=== PATIENT | female | born 1975 | race Caucasian/White ===

== ENCOUNTER 2020-12-29 11:10 | Observation (INO) ==
[2020-12-29] MEDS ORDERED: Ondansetron ODT 4 MG TAB.RAPDIS SL ONE (12:25)
[2020-12-29 13:13] LABS: Basophils % 0.6 %; Eosinophils # 0.1 K/mcL (0.0-0.6); Hematocrit 38.6 % (35.3-44.9); Hemoglobin 12.2 g/dL (11.5-15.4); Immature Granulocytes % 0.7 % (0-4); Lymphocytes % 27.5 %; Mean Corpuscular HGB Conc 31.6 g/dL (31.6-35.5); Mean Corpuscular Volume 91.9 fL (83.0-100.0); Mean Platelet Volume 8.8 fL (9.4-12.4); Monocytes # 0.5 K/mcL (0.0-1.3); Monocytes % 6.9 %; Neutrophils # 4.4 K/mcL (1.6-8.9); Platelet Count 215 K/mcL (140-400); Red Cell Distribution Width 12.9 % (11.5-14.5); Segmented Neutrophils % 62.3 %; White Blood Count 7.1 K/mcL (4.3-11.1)
[2020-12-29] MEDS ORDERED: Ketorolac 15 MG/ML VIAL IVP ONE (13:26)
[2020-12-29] MEDS ORDERED: Prochlorperazine 10 MG/2 ML VIAL IVP ONE (13:29)
[2020-12-29 13:35] LABS: Alanine Aminotransferase 21 Units/L (7-52); Albumin 3.9 g/dL (3.5-5.7); Albumin/Globulin Ratio 1.2 (1.1-2.2); Alkaline Phosphatase 67 Units/L (34-104); Aspartate Amino Transferase 21 Units/L (13-39); BUN/Creatinine Ratio 18 (6-26); Bilirubin,Total 0.3 mg/dL (0.3-1.0); Blood Urea Nitrogen 18 mg/dL (6-20); Calcium 8.9 mg/dL (8.6-10.3); Carbon Dioxide 28 mEq/L (23-29); Chloride 102 mEq/L (98-107); Globulin 3.3 g/dL (2.4-3.5); Glucose 81 mg/dL (70-105); Osmolality,Calculated 285 (280-300); Potassium 4.8 mEq/L (3.5-5.1); Sodium 137 mEq/L (136-145); Total Protein 7.2 g/dL (6.4-8.9); Troponin I < 0.03 ng/mL (< 0.04); eGFR For African Americans > 60 (> 60); eGFR For Non-African Americans 60 (> 60)
[2020-12-29] MEDS ORDERED: *HR* HYDROcodone/Acet 5/325 mg TABLET PO PRN (15:43)
[2020-12-29] MEDS ORDERED: Naloxone 0.4 MG/ML INJ IVP PRN (15:43)
[2020-12-29] MEDS ORDERED: Ondansetron 4 MG/2 ML VIAL IVP PRN (15:43)
[2020-12-29 16:44] LABS: Chol/HDL Ratio 2.8 (0-4.9); Cholesterol 131 mg/dL (< 200); HDL Cholesterol 47 mg/dL (40-59); LDL Cholesterol,Calculated 68 mg/dL (< 100); Magnesium 1.9 mg/dL (1.6-2.6); Phosphorous 3.8 mg/dL (2.7-4.5); Triglycerides 81 mg/dL (< 150)
[2020-12-29 16:51] LABS: Prothrombin Time 11.5 Seconds (9.4-12.1)
[2020-12-29 16:57] LABS: Thyroid Stimulating Hormone 1.548 mcIU/mL (0.340-5.600)
[2020-12-29] MEDS ORDERED: Perflutren Lipid Microsphere 1.3 ML in 0.9 % Sodium Chloride 8.7 ML IVP PRN (18:03)
[2020-12-29] MEDS ORDERED: Nitroglycerin 0.4 MG TAB.SUBL SL PRN (22:25)
[2020-12-29] MEDS ORDERED: Melatonin 3 MG TABLET PO PRN (22:25)
[2020-12-30 01:25] LABS: Basophils % 0.6 %; Eosinophils # 0.2 K/mcL (0.0-0.6); Eosinophils % 3.2 %; Hematocrit 36.9 % (35.3-44.9); Hemoglobin 11.6 g/dL (11.5-15.4); Immature Granulocytes % 0.4 % (0-4); Lymphocytes # 2.9 K/mcL (0.6-4.6); Mean Corpuscular HGB Conc 31.4 g/dL (31.6-35.5); Mean Corpuscular Volume 92.3 fL (83.0-100.0); Mean Platelet Volume 9.1 fL (9.4-12.4); Monocytes # 0.6 K/mcL (0.0-1.3); Neutrophils # 3.4 K/mcL (1.6-8.9); Platelet Count 217 K/mcL (140-400); Segmented Neutrophils % 46.8 %; White Blood Count 7.2 K/mcL (4.3-11.1)
[2020-12-30 01:44] LABS: Alanine Aminotransferase 20 Units/L (7-52); Albumin 3.5 g/dL (3.5-5.7); Albumin/Globulin Ratio 1.1 (1.1-2.2); Alkaline Phosphatase 59 Units/L (34-104); Aspartate Amino Transferase 18 Units/L (13-39); BUN/Creatinine Ratio 19 (6-26); Bilirubin,Total 0.3 mg/dL (0.3-1.0); Blood Urea Nitrogen 22 mg/dL (6-20); Calcium 8.8 mg/dL (8.6-10.3); Carbon Dioxide 27 mEq/L (23-29); Chloride 101 mEq/L (98-107); Globulin 3.3 g/dL (2.4-3.5); Glucose 133 mg/dL (70-105); Magnesium 2.2 mg/dL (1.6-2.6); Osmolality,Calculated 287 (280-300); Phosphorous 5.8 mg/dL (2.7-4.5); Sodium 136 mEq/L (136-145); Total Protein 6.8 g/dL (6.4-8.9); eGFR For African Americans > 60 (> 60); eGFR For Non-African Americans 50 (> 60)
[2020-12-30] MEDS: Acetaminophen 325 MG TABLET PO PRN ×2 (04:55→09:45)
[2020-12-30 05:25] LABS: Bilirubin,Urine Negative (Negative); Blood,Urine Large (Negative); Clarity,Urine Clear (Clear); Color,Urine Yellow (Yellow); Glucose,Urine (UA) Normal (Normal); Hyaline Casts,Urine Few per lpf (None Seen); Ketones,Urine Negative (Negative); Leukocyte Esterase,Urine Negative (Negative); Mucus,Urine Few per lpf (None-Few); Nitrite,Urine Negative (Negative); Protein,Urine 30 mg/dL (Neg-Trace); RBC,Urine TNTC per hpf (0-3); Squamous Epithelial Cell,Urine Few per hpf (None-Few); Urobilinogen,Urine Normal (Normal)
[2020-12-30] MEDS: Methadone Oral Concentrate 50 MG/5 ML UDC PO SCH ×2 (06:06→07:08)
[2020-12-30 08:06] LABS: Amphetamine Screen,Urine Negative ng/mL (Cutoff=1000); Barbiturate Screen,Urine Negative ng/mL (Cutoff=200); Benzodiazepines Screen,Urine Negative ng/mL (Cutoff=200); Cannabinoid Screen,Urine Negative ng/mL (Cutoff = 50); Cocaine Screen,Urine Negative ng/mL (Cutoff= 300); Opiate Screen,Urine Negative ng/mL (Cutoff=300); Phencyclidine Screen,Urine Negative ng/mL (Cutoff=25)
[2020-12-30] MEDS ORDERED: lisinopriL 10 MG TABLET PO SCH (09:00)
[2020-12-30] MEDS ORDERED: Multivit/Ca/Min/Fe/FA 1 TAB TABLET PO SCH (09:00)
[2020-12-30 11:19] VITALS: BP 124/82
[2020-12-30 14:17] LABS: VBG HCO3 28 mEq/L (21-27); VBG PCO2 56 mmHg (41-51); VBG PH 7.31 pH Units (7.32-7.42); VBG PO2 92 mmHg (25-50)
[2020-12-31 13:10] LABS: Estimated Average Glucose 128 mg/dl; Hemoglobin A1C 6.1 %
== END 2020-12-30 16:27 | disposition home or self-care (01) ==
LOC: EMEROOARM 11:10 → 3BNU 11:10 → SUATTDRO 16:19 → 3BNU 16:20
PROVIDERS: ADMIT Internal Medicine; ATTEND Internal Medicine